=== PATIENT | male | born 1935 | race Caucasian/White ===

== ENCOUNTER 2016-06-19 02:20 | Emergency (ER) | payer MEDICARE, OTHER ==
[2016-06-19 02:30] VITALS: BMI 23.2
[2016-06-19 02:31] VITALS: TEMP 98.1
--- NOTE | 2016-06-19 02:44 | EDPRACDOC ---
- General Information Chief Complaint: Male Urogenital Problems Stated Complaint: HEMATURIA Time Seen by Provider: 06/19/16 02:42 Information Source: [facility] Mode Of Arrival: Ambulance Home Medications: Home Medications Aspirin [Aspirin EC] 81 mg PO DAILY 07/10/13 Cholecalciferol [Vitamin D] 1,000 units PO DAILY 07/10/13 Nitroglycerin [Nitrostat] 0.4 mg SL [id number] PRN 07/10/13 Omeprazole [Prilosec] 20 mg PO DAILY 07/10/13 Amiodarone HCl [Pacerone] 200 mg PO DAILY 03/10/14 Docusate Sodium [Stool Softener] 100 mg PO DAILY PRN 03/10/14 Irbesartan [Avapro] 300 mg PO DAILY 05/20/14 Apixaban [Eliquis] 5 mg PO BID 06/19/16 Isosorbide Mononitrate [Imdur] 30 mg PO DAILY 06/19/16 Sertraline HCl 12.5 mg PO DAILY 06/19/16 Tamsulosin HCl [Flomax] 0.4 mg PO QHS 06/19/16 Allergies/Adverse Reactions: Allergies Allergy/AdvReac Type Severity Reaction Status Date / Time adhesive Allergy Rash-Locali Verified 06/19/16 02:30 zed hydromorphone HCl Allergy Nausea/Vomi Verified 06/19/16 02:30 [From Dilaudid] ting meperidine HCl [From Demerol] Allergy Nausea/Vomi Verified 06/19/16 02:30 ting morphine Allergy Rash-Genera Verified 06/19/16 02:30 lized - History of Present Illness Medications/Treatment [employer] W[employer]PER[employer] EMS Treatment BLS HPI: alf patient on ASA and eliquis. h/o dementia, poor historia is not sure why is he in the ED and does not have recollection of events tonight. facility reports gross hematuria. no reported pain or dysuria. 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) Cardiac History: Reports: Coronary Artery Disease, Atrial Fibrillation (Has a "Loop Recorder" in chest), Hypertension, Congestive Heart Failure, Heart Attack (x3-last one 1991), Cardiac Catheterization (1998), CABG (1991) GI/ History: Reports: Urinary Tract Infection, Kidney Stones Musculoskeletal History: Reports: Arthritis Psychological History: Reports: Depression Systemic History: Reports: Cancer Surgical History: Reports: CABG (1991), Cardiac Catheterization (1998), Tonsillectomy/Adnoidectomy Date of Last Radiation Treatment: NA Date of Last Chemotherapy Date: NA - Family Medical History Reports: Hypertension (Mother), Cancer (Sister), Cardiac Disorders (Brother) - Social Medical History Smoking Status: Never smoker EDM Review of Systems - Review of Systems ROS Unobtainable: Yes Review of systems cannot be obtained due to the patient's medical condition - Physical Exam Constitutional: Alert (Awake), No apparent distress Oriented to: Person Last recorded Vital Signs: Last Vital Signs Temp 98.1 F 06/19/16 02:30 Pulse 64 06/19/16 02:30 Resp 18 06/19/16 02:30 BP 183/84 H 06/19/16 02:30 Pulse Ox 94 06/19/16 02:30 Oxygen Pulse Oxygen Saturation 94 O2 Device Oxygen Flow Rate Fraction of Inspired Oxygen ( FIO2) - HEENT Head: Normal ( normocephalic) Eye Exam: Normal (PERRL, EOMI, Sclera white) Oropharynx: Normal (Pharynx:Moist without exudate,Gums-no swelling) Nose: No Symptoms Reported (septum midline) Neck: Normal (FROM, trachea at midline) - Respiratory/Cardiovascular Respiratory: Normal - CTA (BBS clear to auscultation without adventitious sounds ) Cardiovascular: Normal (RRR without murmur, gallop or rub) - GI Auscultation: Normal (NABS) Palpation: Normal (Soft,No rebound or guarding, non distended) Tenderness: Non tender Adams's Sign: Negative - Musculoskeletal Back: Normal (Non-Tender) Extremities: Normal (Normal tone, Pulses 2+ No cyanosis or edema, FROM) - Integumentary Skin: Normal, Warm, Dry Lymphatics: Normal (no adenopathy) - Neurologic Motor Function: Normal (Normal tone, Pulses 2+ No cyanosis or edema, FROM) Cranial Nerve: Normal (CN II-X11 intact sensation, strength 5/5) Cerebellar: Normal Mood Description: Normal Perception: Normal - Re-evaluation Re-evaluation 1 Re-evaluation Time: 04:53 (resting comfortably, pink tinge to urine, farrell in place. no clots) - Results 06/19/16 02:50 06/19/16 02:50 Decision Time to Discharge: 04:54 - Departure Yes I personally saw and evaluated the patient. Disposition: [facility] Facility Condition: Improved Final Diagnosis: Hematuria Instructions: Acute Hematuria (ED) Education/Counseling Given To: Patient Education/Counseling Given Regarding: Diagnosis, Treatment, Follow Up Referrals: Jonah Suarez MD [Primary Care Provider] - One Week Brian Casarez MD [Staff Physician] - One Week
[2016-06-19 03:24] LABS: AUTOMATED BASOPHIL 1.3 % (0-2); AUTOMATED EOSINOPHIL 5.9 % (0-5); AUTOMATED LYMPH 31.1 % (17-44); AUTOMATED NEUTROPHIL 50.7 % (45-76); MPV 7.5 fL (7.4-10.4)
[2016-06-19 03:28] LABS: BLOOD UREA NITROGEN 15 MG/DL (9-20); CALCIUM 9.5 MG/DL (8.4-10.2); CALCULATED OSMOLALITY 270 MOs/Kg (270-290); CHLORIDE 105 mEq/L (98-107); GLUCOSE 100 MG/DL (70-99); SODIUM LEVEL 140 mEq/L (137-146)
[2016-06-19 04:29] LABS: LEUKOCYTES/URINE NEG (NEGATIVE); NITRITE/URINE NEG (NEGATIVE); URINE OCCULT BLOOD 3+ (NEG/TRACE)
[2016-06-19 05:17] VITALS: BP 172/63; PULSE 62
== END 2016-06-19 05:49 ==
LOC: ED 02:20
DX: R31.9 Hematuria, unspecified (principal)
CPT/HCPCS: 36415; 51702; 80048; 81001; 85025; 99284

== ENCOUNTER 2016-06-19 13:44 | Emergency (ER) | payer MEDICARE ==
[2016-06-19 13:53] VITALS: BMI 26.9
[2016-06-19 14:31] LABS: AMORPHOUS 1+; LEUKOCYTES/URINE NEG (NEGATIVE); NITRITE/URINE NEG (NEGATIVE); RBC/URINE TNTC (0-2); URINE OCCULT BLOOD 3+ (NEG/TRACE)
--- NOTE | 2016-06-19 14:41 | EDPRACDOC ---
- General Information Chief Complaint: Male Urogenital Problems Stated Complaint: URINARY PROBLEMS Time Seen by Provider: 06/19/16 13:45 Information Source: Patient, [employer] Mode Of Arrival: Ambulance Home Medications: Home Medications Aspirin [Aspirin EC] 81 mg PO DAILY 07/10/13 Cholecalciferol [Vitamin D] 1,000 units PO DAILY 07/10/13 Nitroglycerin [Nitrostat] 0.4 mg SL Q5MX3 PRN 07/10/13 Omeprazole [Prilosec] 20 mg PO DAILY 07/10/13 Amiodarone HCl [Pacerone] 200 mg PO DAILY 03/10/14 Docusate Sodium [Stool Softener] 100 mg PO DAILY PRN 03/10/14 Irbesartan [Avapro] 300 mg PO DAILY 05/20/14 Apixaban [Eliquis] 5 mg PO BID 06/19/16 Isosorbide Mononitrate [Imdur] 30 mg PO DAILY 06/19/16 Sertraline HCl 12.5 mg PO DAILY 06/19/16 Tamsulosin HCl [Flomax] 0.4 mg PO QHS 06/19/16 Allergies/Adverse Reactions: Allergies Allergy/AdvReac Type Severity Reaction Status Date / Time adhesive Allergy Rash-Locali Verified 06/19/16 13:53 zed hydromorphone HCl Allergy Nausea/Vomi Verified 06/19/16 13:53 [From Dilaudid] ting meperidine HCl [From Demerol] Allergy Nausea/Vomi Verified 06/19/16 13:53 ting morphine Allergy Rash-Genera Verified 06/19/16 13:53 lized - History of Present Illness 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 THE PT HAD A TODD PLACED TODAY. 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 PT HAS HAD TO HAVE AN INDWELLING CATH IN THE PAST, BUT NOT FOR A FEW YEARS. 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) , Dementia Cardiac History: Reports: Coronary Artery Disease, Atrial Fibrillation (Has a "Loop Recorder" in chest), Hypertension, Congestive Heart Failure, Heart Attack (x3-last one 1991), Cardiac Catheterization (1998), CABG (1991) GI/ History: Reports: Urinary Tract Infection, Kidney Stones Musculoskeletal History: Reports: Arthritis Psychological History: Reports: Depression, Anxiety Systemic History: Reports: Cancer Surgical History: Reports: CABG (1991), Cardiac Catheterization (1998), Tonsillectomy/Adnoidectomy Date of Last Radiation Treatment: NA Date of Last Chemotherapy Date: NA - Family Medical History Reports: Hypertension (Mother), Cancer (Sister), Cardiac Disorders (Brother) - Social Medical History Smoking Status: Never smoker ETOH: None Substance Abuse: None Lives In: Assisted Living EDM Review of Systems - Review of Systems ROS Negative Except as Marked: Yes All systems reviewed and were negative except as marked Genitourinary: Hematuria - Physical Exam Constitutional: Alert (Awake), No apparent distress Oriented to: Person Last recorded Vital Signs: Last Vital Signs Temp 97.7 F 06/19/16 13:44 Pulse 77 06/19/16 13:44 Resp 18 06/19/16 13:44 BP 95/52 L 06/19/16 13:44 Pulse Ox 92 06/19/16 13:44 Oxygen Pulse Oxygen Saturation 92 O2 Device Oxygen Flow Rate Fraction of Inspired Oxygen ( FIO2) - HEENT Head: Normal ( normocephalic) Eye Exam: Normal (PERRL, EOMI, Sclera white) Oropharynx: Normal (Pharynx:Moist without exudate,Gums-no swelling) ENT EAC: Normal TMJ: Normal Nose: No Symptoms Reported (septum midline) Neck: Normal (FROM, trachea at midline) - Respiratory/Cardiovascular Respiratory: Normal - CTA (BBS clear to auscultation without adventitious sounds ) Cardiovascular: Normal (RRR without murmur, gallop or rub) - GI Auscultation: Normal (NABS) Palpation: Normal (Soft,No rebound or guarding, non distended) Tenderness: Non tender Adams's Sign: Negative - Male Genitalia: Bilateral: Other (BLEEDING FROM URETHRA) Scrotum: Bilateral: Normal - Results Urine Color Brown 06/19/16 14:00 Urine Clarity Cldy 06/19/16 14:00 Urine pH 7.0 (5.0-8.0) 06/19/16 14:00 Ur Specific [place] 1.005 (1.003-1.035) 06/19/16 14:00 Urine Protein 3+ (NEG/TRACE) H 06/19/16 14:00 Urine Glucose (UA) Neg (NEGATIVE) 06/19/16 14:00 Urine Ketones 1+ (NEGATIVE) H 06/19/16 14:00 Urine Occult Blood 3+ (NEG/TRACE) H 06/19/16 14:00 Urine Nitrite Neg (NEGATIVE) 06/19/16 14:00 Urine Bilirubin Neg (NEGATIVE) 06/19/16 14:00 Urine Urobilinogen <2.0 MG/DL (0-1) 06/19/16 14:00 Ur Leukocyte Esterase Neg (NEGATIVE) 06/19/16 14:00 Urine RBC Tntc (0-2) H 06/19/16 14:00 Urine WBC 2-5 (0-2) H 06/19/16 14:00 Amorphous Sediment 1+ 06/19/16 14:00 Urine Bacteria 1+ (NEG/FEW) H 06/19/16 14:00 Lab Results 06/19/16 14:00 Urine Color Brown Urine Clarity Cldy Urine pH 7.0 Ur Specific [place] 1.005 Urine Protein 3+ H Urine Glucose (UA) Neg Urine Ketones 1+ H Urine Occult Blood 3+ H Urine Nitrite Neg Urine Bilirubin Neg Urine Urobilinogen <2.0 Ur Leukocyte Esterase Neg Urine RBC Tntc H Urine WBC 2-5 H Amorphous Sediment 1+ Urine Bacteria 1+ H - Departure Yes I personally saw and evaluated the patient. Disposition: Home Condition: Fair Final Diagnosis: Hematuria, Urethral injury Instructions: Acute Hematuria (ED) Education/Counseling Given To: Patient, Family Member Education/Counseling Given Regarding: Diagnosis, Treatment, Follow Up Referrals: None,No Provider [Primary Care Provider] - One Week Brenton Jean Baptiste MD [Staff Physician] - One Week Additional Instructions: GLORIA ARTHUR
[2016-06-19] MEDS ORDERED: LORAZEPAM 0.5 MG TAB PO ONE (17:03)
[2016-06-19] MEDS: LORAZEPAM 1 MG TAB ONE ×2 (17:07→17:14)
[2016-06-19] MEDS ORDERED: LORAZEPAM 2 MG/ML VIAL IM ONE (17:19)
[2016-06-19] MEDS ORDERED: ATROPINE 1 MG/10 ML PFS IV ONE (17:19)
[2016-06-19] MEDS ORDERED: LORAZEPAM 2 MG/ML VIAL ONE (17:20)
[2016-06-19 18:53] VITALS: BP 129/61; PULSE 71; TEMP 97.6
== END 2016-06-19 18:45 | disposition home or self-care (01) ==
LOC: ED 13:44
DX: R31.9 Hematuria, unspecified (principal); S37.30XA Unspecified injury of urethra, initial encounter; X58.XXXA Exposure to other specified factors, initial encounter; Y93.9 Activity, unspecified
CPT/HCPCS: 51702; 81001; 96372; 99285; A9270; J2060; J0461; J3490